=== PATIENT | male | born 1965 | race Caucasian/White ===

== ENCOUNTER 2023-06-09 09:18 | Inpatient (IN) | payer OTHER ==
[~2023-06-09] VITALS: Ht 182.9 cm; Wt 119.4 kg
[2023-06-09] VITALS (10 sets, daily range): BP systolic 102–139; BP diastolic 70–87; PULSE 69–83; RESP 14–22; TEMP 97.5–97.7; O2SAT 92–99
[2023-06-09 10:31] LABS: Basophils # (auto) 0.1 10 ^3/uL (0-0.2); Basophils % (auto) 1.2 % (0.0-2.0); Eosinophils # (auto) 0.5 10 ^3/uL (0-0.8); Eosinophils % (auto) 5.7 % (0.0-7.0); Hematocrit 49.9 % (41.0-53.0); Hemoglobin 17.1 g/dL (13.5-17.5); Lymphocytes # (auto) 1.9 10 ^3/uL (0.4-5.4); Lymphocytes % (auto) 24.1 % (10.0-50.0); Mean Corpuscular Hemoglobin 32.8 pg (28.0-32.0); Mean Corpuscular Hgb Conc. 34.3 g/dL (32.0-36.0); Mean Corpuscular Volume 95.7 fL (80.0-100.0); Monocytes # (auto) 0.8 10 ^3/uL (0-1.3); Monocytes % (auto) 10.1 % (0.0-12.0); Neutrophils # (auto) 4.7 10 ^3/uL (1.6-8.6); Neutrophils % (auto) 58.9 % (37.0-80.0); Nucleated Red Blood Cells % 0.1 %; Red Blood Cells 5.21 10^6/uL (4.5-5.90); Red Cell Distribution Width 13.5 % (11.8-14.3)
[2023-06-09 10:38] LABS: Alanine Aminotransferase 42 U/L (7-40); Albumin 4.6 g/dL (3.2-4.8); Alkaline Phosphatase 59 U/L (46-116); Anion Gap 7 (5-15); Aspartate Aminotransferase 29 U/L (13-40); Calcium 9.9 mg/dL (8.5-10.1); Carbon Dioxide 25 mmol/L (20-30); Chloride 106 mmol/L (98-107); Glucose 103 mg/dL (74-106); Sodium 138 mmol/L (136-145)
[2023-06-09 10:39] LABS: Bilirubin, Total 0.5 mg/dL (0.2-1.0); Total Protein 7.6 g/dL (5.7-8.2)
[2023-06-09 10:43] LABS: BUN/Creatinine Ratio 4.5 (10.0-20.0); Blood Urea Nitrogen < 5 mg/dL (9-23)
[2023-06-09 12:30] LABS: INR 0.99 (0.9-1.15); Partial Thromboplastin Time 25.4 SEC (24.5-34.5); Prothrombin Time 10.5 sec (9.3-11.8)
[2023-06-09] MEDS: NITROGLYCERIN 0.4 MG SL TAB SL ONE (12:48)
[2023-06-09] MEDS: SODIUM CHLORIDE 0.9% 1,000 ML IV ONE (12:49)
[2023-06-09] MEDS: MORPHINE SULFATE INJ 2 MG/ml SYRG IV ONE (12:49)
[2023-06-09] MEDS ORDERED: DOCUSATE SOD 100 MG CAP PO PRN (14:00)
[2023-06-09] MEDS ORDERED: MORPHINE SULFATE INJ 2 MG/ml SYRG IV PRN (14:00)
[2023-06-09] MEDS ORDERED: NITROGLYCERIN 0.4 MG SL TAB SL PRN (14:00)
[2023-06-09] MEDS ORDERED: ONDANSETRON HCL 4 MG/2 ML VIAL IV PRN (14:00)
[2023-06-09] MEDS ORDERED: HYDROcodone-ACET 5/325MG TAB PO PRN (14:00)
[2023-06-09] MEDS: LIDOCAINE 2%HCL (LOCAL ANESTH.) INJ 20ML MDV ONE (14:10)
[2023-06-09] MEDS: ANGIOMAX 250 MG VIAL IV ONE (14:12)
[2023-06-09] MEDS: MIDAZOLAM HCL 2MG/2ML 2ml VIAL (1mg/ml) ONE (14:13)
[2023-06-09] MEDS: HEPARIN SODIUM (PORCINE) 5000 UNITS/ML 1ML VIAL ONE (14:13)
[2023-06-09] MEDS: SODIUM CHL 0.9% 50 ML ONE (14:13)
[2023-06-09] MEDS: fentaNYL CITRATE 100 MCG/2 ML VL ONE (14:13)
[2023-06-09] MEDS: VERAPAMIL 2.5MG/ML INJ 2ML VIAL IV ONE (14:13)
[2023-06-09] MEDS: ASPirin 81 mg TAB ONE (15:04)
[2023-06-09] MEDS: IODIXANOL 320MG/ML 100ML BTL IV ONE (15:07)
[2023-06-09] MEDS: TICAGRELOR 90 MG TAB ONE (15:09)
[2023-06-09] MEDS ORDERED: NITR0.4S29 SL (15:17)
[2023-06-09] MEDS ORDERED: LEV100T PO (15:18)
[2023-06-09] MEDS ORDERED: CYAN-17 PO (15:30)
[2023-06-09] MEDS ORDERED: TICA90TA PO (15:30)
[2023-06-09] MEDS ORDERED: POM PO (15:30)
[2023-06-09] MEDS ORDERED: [UNRECOGNIZED DRUG - CODE] PO (15:30)
[2023-06-09] MEDS ORDERED: B-COCAP23 PO (15:30)
[2023-06-09] MEDS ORDERED: LOSA-534 PO (15:30)
[2023-06-09] MEDS ORDERED: ATOR80TA PO (15:31)
[2023-06-09] MEDS ORDERED: ASPI1TAB20 PO (15:31)
[2023-06-09] MEDS: MORPHINE SULFATE INJ 2 MG/ml SYRG IV PRN (20:32)
[2023-06-09] MEDS ORDERED: TICAGRELOR 90 MG TAB PO SCH (22:00)
[2023-06-09] MEDS: ATORVASTATIN 20 MG TAB PO SCH (23:53)
[2023-06-09] MEDS: TICAGRELOR 90 MG TAB PO SCH (23:54)
[2023-06-10] VITALS (11 sets, daily range): BP systolic 98–143; BP diastolic 56–91; PULSE 66–87; RESP 17–20; TEMP 97.4–98.2; O2SAT 93–99
[2023-06-10 06:47] LABS: Basophils # (auto) 0.1 10 ^3/uL (0-0.2); Eosinophils # (auto) 0.5 10 ^3/uL (0-0.8); Eosinophils % (auto) 5.3 % (0.0-7.0); Hematocrit 46.8 % (41.0-53.0); Hemoglobin 15.8 g/dL (13.5-17.5); Lymphocytes # (auto) 1.9 10 ^3/uL (0.4-5.4); Lymphocytes % (auto) 20.9 % (10.0-50.0); Mean Corpuscular Hemoglobin 32.4 pg (28.0-32.0); Mean Corpuscular Hgb Conc. 33.8 g/dL (32.0-36.0); Mean Corpuscular Volume 95.7 fL (80.0-100.0); Monocytes # (auto) 0.9 10 ^3/uL (0-1.3); Monocytes % (auto) 9.7 % (0.0-12.0); Neutrophils # (auto) 5.7 10 ^3/uL (1.6-8.6); Neutrophils % (auto) 63.1 % (37.0-80.0); Nucleated Red Blood Cells % 0.1 %; Red Blood Cells 4.88 10^6/uL (4.5-5.90); Red Cell Distribution Width 13.7 % (11.8-14.3)
[2023-06-10 06:52] LABS: Alanine Aminotransferase 35 U/L (7-40); Albumin 4.1 g/dL (3.2-4.8); Alkaline Phosphatase 55 U/L (46-116); Anion Gap 7 (5-15); Aspartate Aminotransferase 28 U/L (13-40); BUN/Creatinine Ratio 7.5 (10.0-20.0); Blood Urea Nitrogen 8 mg/dL (9-23); Calcium 9.1 mg/dL (8.5-10.1); Carbon Dioxide 27 mmol/L (20-30); Chloride 106 mmol/L (98-107); Glucose 93 mg/dL (74-106); Sodium 140 mmol/L (136-145)
[2023-06-10 06:53] LABS: Bilirubin, Total 0.8 mg/dL (0.2-1.0); Total Protein 6.8 g/dL (5.7-8.2)
[2023-06-10 09:28] LABS: Triglycerides 193 mg/dL (< 150)
[2023-06-10 09:29] LABS: LDL Cholesterol 109 mg/dL (< 100)
[2023-06-10 09:30] LABS: Cholesterol 167 mg/dL (< 200); HDL Cholesterol 33 mg/dL (40-59)
[2023-06-10] MEDS ORDERED: ASPirin 81 mg TAB PO SCH (10:00)
[2023-06-10] MEDS: ASPirin 81 mg TAB PO SCH (10:37)
[2023-06-10] MEDS: PANTOPRAZOLE 40 MG TAB PO SCH (10:38)
[2023-06-10] MEDS: LOSARTAN POTASSIUM 50 MG TAB PO SCH (10:38)
[2023-06-10] MEDS ORDERED: ALBUTEROL SULF 2.5 MG/0.5ML(0.5%) NEB SOLN NEB ONE (16:15)
[2023-06-10] MEDS ORDERED: IPRATROPIUM BROM 0.5 MG/2.5ML INH SOL NEB ONE (16:15)
[2023-06-10] MEDS: IPRATROPIUM BROM 0.5 MG/2.5ML INH SOL ONE (16:30)
[2023-06-10] MEDS: ALBUTEROL SULF 2.5 MG/0.5ML(0.5%) NEB SOLN ONE (16:30)
[2023-06-10 19:30] LABS: Urine Bacteria None Seen /hpf (None Seen)
[2023-06-10 20:02] LABS: Urine Blood Negative /uL (Negative); Urine Clarity Clear (Clear); Urine Color Light-Yellow (Yellow); Urine Protein, UAD Negative (Negative); Urine Specific Gravity 1.012 (1.001-1.035); Urine Urobilinogen Normal (Negative); Urine WBC 2 /hpf (0 - 3); Urine pH 6.5 (5.0-9.0)
[2023-06-10 20:09] LABS: Amphetamine Screen, Urine Neg (NEGATIVE); Benzodiazephine Screen, Urine Pos (NEGATIVE)
[2023-06-10 20:10] LABS: Barbiturate Scree,Urine Neg (NEGATIVE); Cannabinoid Screen, Urine Neg (NEGATIVE); Cocaine Screen, Urine Neg (NEGATIVE); Opiate Scree,Urine Neg (NEGATIVE); Phencyclidine Screen, Urine Neg (NEGATIVE)
[2023-06-10 20:12] LABS: COVID19 ANTIGEN SOFIA FIA NEGATIVE (NEGATIVE); Rapid Influenza A Negative (Negative); Rapid Influenza B Negative (Negative)
[2023-06-11] VITALS (10 sets, daily range): BP systolic 96–127; BP diastolic 56–86; PULSE 70–93; RESP 16–20; TEMP 97.2–98.2; O2SAT 94–100
[2023-06-11] MEDS: IPRATROPIUM BROM 0.5 MG/2.5ML INH SOL NEB PRN (00:38)
[2023-06-11 06:14] LABS: Basophils # (auto) 0.1 10 ^3/uL (0-0.2); Basophils % (auto) 0.8 % (0.0-2.0); Eosinophils # (auto) 0.4 10 ^3/uL (0-0.8); Eosinophils % (auto) 4.9 % (0.0-7.0); Hematocrit 46.7 % (41.0-53.0); Hemoglobin 16.1 g/dL (13.5-17.5); Lymphocytes # (auto) 2.2 10 ^3/uL (0.4-5.4); Lymphocytes % (auto) 24.8 % (10.0-50.0); Mean Corpuscular Hgb Conc. 34.5 g/dL (32.0-36.0); Mean Corpuscular Volume 95.7 fL (80.0-100.0); Monocytes # (auto) 0.8 10 ^3/uL (0-1.3); Monocytes % (auto) 8.6 % (0.0-12.0); Neutrophils # (auto) 5.3 10 ^3/uL (1.6-8.6); Neutrophils % (auto) 60.9 % (37.0-80.0); Nucleated Red Blood Cells % 0.1 %; Red Blood Cells 4.88 10^6/uL (4.5-5.90); Red Cell Distribution Width 13.6 % (11.8-14.3); White Blood Cell 8.7 10^3/uL (4.4-10.8)
[2023-06-11 06:21] LABS: Chloride 104 mmol/L (98-107); Potassium 3.6 mmol/L (3.5-5.1); Sodium 138 mmol/L (136-145)
[2023-06-11 06:22] LABS: Anion Gap 9 (5-15); Calcium 9.7 mg/dL (8.7-10.4); Carbon Dioxide 25 mmol/L (20-30)
[2023-06-11] MEDS: LEVOTHYROXINE SODIUM 25 MCG TAB PO SCH (06:25)
[2023-06-11 06:27] LABS: BUN/Creatinine Ratio 8.8 (10.0-20.0); Blood Urea Nitrogen 10 mg/dL (9-23); Glucose 88 mg/dL (74-106)
[2023-06-11 06:28] LABS: Magnesium 2.3 mg/dL (1.6-2.6)
[2023-06-11] MEDS ORDERED: LEVO25TA6 PO (08:13)
[2023-06-11] MEDS: ACETAMINOPHEN 325 MG TAB PO PRN (10:04)
[2023-06-11] MEDS: LEVALBUTEROL HCL 1.25 MG/3 ML NEB NEB SCH (11:34)
[2023-06-11] MEDS ORDERED: LEVALBUTEROL HCL 1.25 MG/3 ML NEB NEB SCH (18:30)
== END 2023-06-11 12:00 | disposition home or self-care (01) | DRG 322 ==
LOC: ER 09:18 → TELE 13:53 → TELE-CENTR 19:04 → TELE-WESTW 06-10 16:52
PROVIDERS: ADMIT Internal Medicine; ATTEND Internal Medicine
PROC: 027034Z Dilation of Coronary Artery, One Artery with Drug-eluting Intraluminal Device, Percutaneous Approach (ICD-10-PCS; principal; 2023-06-09)
PROC: 4A023N7 Measurement of Cardiac Sampling and Pressure, Left Heart, Percutaneous Approach (ICD-10-PCS; 2023-06-09)
PROC: B211YZZ Fluoroscopy of Multiple Coronary Arteries using Other Contrast (ICD-10-PCS; 2023-06-09)
DX: I24.9 Acute ischemic heart disease, unspecified (principal); I25.110 Atherosclerotic heart disease of native coronary artery with unstable angina pectoris; I10 Essential (primary) hypertension; E66.9 Obesity, unspecified; E03.9 Hypothyroidism, unspecified; K21.9 Gastro-esophageal reflux disease without esophagitis; E78.5 Hyperlipidemia, unspecified; G89.29 Other chronic pain; Z20.822 Contact with and (suspected) exposure to COVID-19; I25.2 Old myocardial infarction; Z88.8 Allergy status to other drugs, medicaments and biological substances; Z68.35 Body mass index [BMI] 35.0-35.9, adult
CPT/HCPCS: 36415; 71046; 80048; 80053; 80061; 80307; 81001; 83036; 83735; 83880; 84439; 84443; 84484; 85025; 85379; 85610; 85730; 87426; 87804; 93005; 93306; 94640; 96361; 96374; 99152; G0378; J2250; Q9967